=== PATIENT | male | born 1940 | race Caucasian/White ===

== ENCOUNTER 2019-03-09 08:44 | Observation (INO) ==
--- NOTE | 2019-02-24 10:28 | EKG Report ---
Test Performed on : 02/24/2019 09:38:37 AM Test Reason : PAT Blood Pressure : / mmHG Vent. Rate : 082 BPM Atrial Rate : 082 BPM P-R Int : 168 ms QRS Dur : 144 ms QT Int : 422 ms P-R-T Axes : 070 -78 051 degrees QTc Int : 493 ms Normal sinus rhythm. Left axis deviation Right bundle branch block Abnormal ECG No previous ECGs available Confirmed by Navi REYES, Chago Sin ([id number]) on 02/24/2019 11:39:57 AM
[2019-02-24 10:57] LABS: URINE SOURCE CLEAN CATCH
[2019-02-24 11:15] LABS: BILIRUBIN URINE NEGATIVE (NEGATIVE); BLOOD URINE NEGATIVE (NEGATIVE); COLOR YELLOW; GLUCOSE URINE NEGATIVE (NEGATIVE); KETONE URINE NEGATIVE (NEGATIVE); LEUKOCYTES URINE NEGATIVE (NEGATIVE); NITRITE URINE NEGATIVE (NEGATIVE); PROTEIN URINE TRACE mg/dL (NEGATIVE); SP GRAVITY URINE 1.005; TURBIDITY URINE CLEAR (CLEAR); UROBILINOGEN URINE NORMAL (NORMAL)
[2019-02-24 11:16] LABS: BASO# 0.03 X1000 (0.0-0.2); BASO% 0.4 % (0.0-0.8); EOS# 0.13 X1000 (0.0-0.7); EOS% 1.8 % (0.0-10.0); HEMATOCRIT 46.1 % (42.0-52.0); HEMOGLOBIN 15.3 g/dL (14.0-18.0); LYMPH# 1.72 X1000 (1.2-3.4); LYMPH% 23.8 % (20.5-51.1); MCH 30.8 PG (27-31); MCHC 33.2 g/dL (33-37); MCV 92.9 FL (81-99); MONO# 0.61 X1000 (0.11-0.59); MONO% 8.4 % (1.7-9.3); MPV 10.5 FL (7.4-10.4); NEUT# 4.73 X1000 (1.4-6.5); NEUT% 65.6 % (42.2-75.2); PLT 219 X1000 (130-400); RBC 4.96 XMIL (4.7-6.1); RDW 14.4 % (11.5-14.5); UR EPITHELIAL CELLS <10 /HPF (<10); URINE BACTERIA NEGATIVE /HPF; URINE RBC <10 /HPF (<10); URINE WBC <10 /HPF (<10); WBC 7.22 X1000 (4.8-10.8)
[2019-02-24 11:18] LABS: INR 0.86; PROTIME 12.4 Seconds (11.0-16.0); PTT 28.1 Seconds (22.3-41.8)
[2019-02-24 11:25] LABS: AGAP 11; BUN 22 mg/dL (8-22); CALCIUM 9.4 mg/dL (8.8-10.2); CHLORIDE 101 mmol/L (98-107); COSMO 287; ESTIMATED GFR > 60; GLUCOSE 147 mg/dL (70-104); POTASSIUM 4.7 mmol/L (3.5-5.1); SODIUM 141 mmol/L (136-145); TCO2 29 mmol/L (25-35)
[2019-03-09] MEDS ORDERED: LYRICA ONE (09:21)
[2019-03-09] MEDS ORDERED: PEPCID ONE (09:21)
[2019-03-09] MEDS ORDERED: KEFZOL 1 GM/D5W 1 GM/50 ML IVPB ONE (09:21)
[2019-03-09] MEDS ORDERED: REGLAN ONE (09:21)
[2019-03-09] MEDS ORDERED: LR 1,000 ML ONE (09:21)
[2019-03-09] MEDS ORDERED: COLACE ONE (09:38)
[2019-03-09] MEDS: COLACE ONE ×2 (09:50→09:53)
[2019-03-09] MEDS ORDERED: ROBINUL ONE (10:02)
[2019-03-09] MEDS ORDERED: FENTANYL ONE (10:02)
[2019-03-09] MEDS ORDERED: XYLOCAINE-MPF 2% ONE (10:02)
[2019-03-09] MEDS ORDERED: ZOFRAN ONE (10:02)
[2019-03-09] MEDS ORDERED: DIPRIVAN 1% ONE ×2 (10:02→10:39)
[2019-03-09] MEDS ORDERED: DECADRON ONE (10:02)
[2019-03-09] MEDS ORDERED: DURAMORPH ONE (10:07)
[2019-03-09] MEDS ORDERED: MARCAINE 0.25% PF/EPI 1:200,000 ONE (10:07)
[2019-03-09] MEDS ORDERED: VANCOMYCIN ONE (10:07)
[2019-03-09] MEDS ORDERED: TORADOL ONE (10:07)
[2019-03-09] MEDS ORDERED: NEOSPORIN G.U. IRRIGANT ONE (10:08)
[2019-03-09] MEDS ORDERED: SODIUM CHLORIDE 0.9% ONE (10:08)
[2019-03-09] MEDS ORDERED: EXPAREL 1.3% ONE (10:08)
[2019-03-09] MEDS ORDERED: OFIRMEV 1000 MG/ISOTONIC SOLN 1,000 MG/100 ML BOTTLE ONE (10:54)
[2019-03-09] MEDS: CYKLOKAPRON 1,000 MG/NS 2,000 MG/200 ML IVPB ONE ×2 (11:07→12:48)
[2019-03-09] MEDS ORDERED: SODIUM CHLORIDE 0.9% 10 ML ONE (11:08)
[2019-03-09] MEDS ORDERED: NEO-SYNEPHRINE ONE (11:54)
[2019-03-09 13:39] LABS: URINE SOURCE CATH
[2019-03-09] MEDS ORDERED: NS 1,000 ML ONE (13:40)
[2019-03-09 13:43] LABS: BILIRUBIN URINE NEGATIVE (NEGATIVE); BLOOD URINE NEGATIVE (NEGATIVE); COLOR YELLOW; GLUCOSE URINE NEGATIVE (NEGATIVE); KETONE URINE NEGATIVE (NEGATIVE); LEUKOCYTES URINE NEGATIVE (NEGATIVE); NITRITE URINE NEGATIVE (NEGATIVE); PH URINE 7.5; PROTEIN URINE NEGATIVE (NEGATIVE); SP GRAVITY URINE 1.006; TURBIDITY URINE CLEAR (CLEAR); UROBILINOGEN URINE NORMAL (NORMAL)
[2019-03-09 13:45] LABS: UR EPITHELIAL CELLS <10 /HPF (<10); URINE BACTERIA NEGATIVE /HPF; URINE RBC <10 /HPF (<10); URINE WBC <10 /HPF (<10)
--- NOTE | 2019-03-09 14:07 | Diag Imaging Result Doc PS360 ---
EXAM: KNEE 1-2 VIEWS-RIGHT 03/09/2019 HISTORY: right TKA TECHNIQUE: Two views COMMENT: There is a total knee arthroplasty. There is no evidence of acute fracture. There is atherosclerotic calcification in the distal superficial femoral artery. IMPRESSION: Postsurgical changes. Electronically signed by Jelani Nguyen 03/09/2019 2:05 PM
[2019-03-09] MEDS ORDERED: OXY IR PO PRN ×2 (16:30)
[2019-03-09] MEDS ORDERED: MORPHINE IV PRN ×3 (16:30)
[2019-03-09] MEDS ORDERED: ZOFRAN PO PRN (16:30)
[2019-03-09] MEDS: NS 1,000 ML IV SCH (17:28)
--- NOTE | 2019-03-09 19:47 | OPERATIVE NOTE ---
PROCEDURE DATE: 03/09/2019 PREOPERATIVE DIAGNOSIS: Degenerative osteoarthritis of right knee. POSTOPERATIVE DIAGNOSIS: Degenerative osteoarthritis of right knee. PROCEDURE: Right total knee arthroplasty, DePuy Attune size 7 posterior stabilized femur, size 6 tibial tray, a 5 mm rotating platform tibial insert, and a 38 mm medialized anatomic patella. SURGEON: Dante Sauer MD. ELECTRIC ORGAN ASSEMBLER: KAPIL Baker SECOND BELLY ROLLER: Giorgi Thompson RN. ANESTHESIA: Spinal. IV FLUIDS: 1500 mL lactated Ringer's. ESTIMATED BLOOD LOSS: 25 mL. TOURNIQUET TIME: 110 minutes at 350 mmHg. COMPLICATIONS: None. INDICATION: The patient is an 78-year-old male with a chronic history of worsening pain and discomfort in his right knee. He has had continued pain and discomfort despite appropriate nonoperative treatment. X-rays revealed degenerative osteoarthritis. Recommendation to proceed with right total knee arthroplasty was offered. Risks and benefits of surgery were explained, including the risks of anesthesia, , bleeding, infection, failure to relieve pain, postoperative stiffness, nerve injury, blood clots, and other imponderables. All questions were answered, and the patient wished to proceed with surgery. DETAILS OF OPERATION: Patient was taken to the operating room and placed supine on the operating table. Once adequate anesthesia was obtained, the patient's right lower extremity was subsequently prepped and draped in usual sterile fashion. Esmarch was used to exsanguinate the right lower extremity, and the tourniquet was inflated to 350 mm Hg. A standard anterior incision was made with skin knife. Medial and lateral skin envelopes were developed. Standard medial parapatellar arthrotomy was then performed. Patella fat pad was excised. Approximately 1 cm anterior to the PCL insertion, a starting reamer was passed. Intramedullary guide with a distal cutting block was pinned in position. Distal femoral cut was then performed. A sizing block was placed and measured to size 7. Corresponding pins were placed. Anterior, posterior and chamfer cuts were then made. Attention was then turned to the proximal tibia where further resection of the ACL and PCL was performed. Using the extramedullary guide, the proximal tibia cutting block was pinned into position. Had good alignment confirmed with the alignment antonio. The proximal tibia was then resected. Medial and lateral menisci were excised, and a curved osteotome was used to remove the posterior osteophytes off the distal femur. A spacer block was placed and had some tightness in full extension. Therefore a subsequent cut was made more distally as well as the chamfer cuts on the distal femur. Attention was then turned to the proximal tibia where a size 6 tibial tray appeared to be correct size. This was pinned in position. This was followed by a central reamer and a fin punch. The box cutting guide was then placed in the distal femoral, and box cut was performed. Trial femoral component was then placed as well as a trial tibial insert. Patella had been resected earlier, and a protective disk was placed. The protective this was removed. A size 38 appeared to be correct size. Holes were drilled. The trial patella component was then placed with good patellofemoral tracking. Trial components were removed. Copious irrigation was performed with antibiotic pulsatile lavage. Vancomycin was mixed with cement on the back table. Sequential cementing was then performed first with the tibial tray and excess cement was removed with a [place] followed by the femoral component and excess cement was removed with a [place] followed by trial tibial insert in full extension, and axial loading was maintained while cement cured. Patella component was cemented in standard fashion. Patella clamp was placed. While cement was curing, Exparel was placed in deep posterior capsule as well as subcutaneous tissue. After cement had cured, peripheral cement was removed with a small osteotome. The 5 mm rotating platform tibial insert appeared to be correct size. The trial insert was removed. Exparel was placed deep to posterior capsule. Wound was copiously irrigated once again with antibiotic pulsatile lavage. The 5 mm rotating platform tibial insert was then placed. The knee was then carried through range of motion with good range of motion and good soft tissue balance and good patellofemoral tracking. A 1/8 Hemovac drain was placed and was not sewn in. Copious irrigation performed once again with antibiotic pulsatile lavage. A #1 Vicryl was then used per the arthrotomy followed by 2-0 Vicryl in subcutaneous tissue and skin leah. Adaptic, sterile 4 x 4's, Webril, cryo unit, and Donaldo wrap were applied to the right lower extremity. The patient tolerated the procedure well and was transferred to the recovery room in stable condition. cc: Dante Sauer MD
[2019-03-09] MEDS: KEFZOL 1 GM/D5W 1 GM/50 ML IVPB IV SCH (20:13)
[2019-03-09] MEDS ORDERED: MIRALAX PO SCH (23:30)
[2019-03-09] MEDS ORDERED: NITROGLYCERIN SL PRN (23:42)
[2019-03-10] MEDS: KEFZOL 1 GM/D5W 1 GM/50 ML IVPB IV SCH (03:02)
[2019-03-10] MEDS: NS 1,000 ML IV SCH (05:41)
[2019-03-10 05:53] LABS: HEMATOCRIT 38.9 % (42.0-52.0); HEMOGLOBIN 12.9 g/dL (14.0-18.0)
[2019-03-10] MEDS ORDERED: XARELTO PO SCH (06:00)
[2019-03-10 06:15] LABS: CALCIUM 8.8 mg/dL (8.8-10.2); CREATININE 1.2 mg/dL (0.7-1.2); POTASSIUM 4.4 mmol/L (3.5-5.1)
[2019-03-10] MEDS ORDERED: GLUCOPHAGE PO SCH (09:00)
[2019-03-10] MEDS ORDERED: CENTRUM SILVER PO SCH (09:00)
[2019-03-10] MEDS ORDERED: BENICAR PO SCH (09:00)
[2019-03-10] MEDS ORDERED: PERIDEX MT SCH (09:00)
--- NOTE | 2019-03-10 09:21 | ORTHOPAEDICS PROGRESS NOTE ---
DATE: 03/10/2019 SUBJECTIVE: The patient is a pleasant, 78-year-old male who is 1 day status post right total knee arthroplasty. He is currently resting comfortably. PHYSICAL EXAMINATION: The patient's dressing is intact. His calf is soft. He has active dorsiflexion and plantar flexion. LABORATORY DATA: Hemoglobin is 12.9, hematocrit is 38.9. IMPRESSION: Postoperative day #1 status post right total knee arthroplasty. PLAN: At this point, we will change his dressing and discontinue his drain. We will begin mobilization with physical therapy. We will plan on discharging home once he is mobilizing well. We will arrange for home physical therapy. cc: Dante Sauer MD
[2019-03-10 12:50] VITALS: BP 146/73
== END 2019-03-10 14:38 | disposition home health service (06) ==
LOC: PAT 08:44 → 4N 08:44 → OPS 08:44
PROVIDERS: ADMIT Orthopaedic Surgery Adult Reconstructive Orthopaedic Surgery; ATTEND Orthopaedic Surgery Adult Reconstructive Orthopaedic Surgery
CPT/HCPCS: 73560; 80048; 81001; 82948; 85014; 85018; 85025; 85610; 85730; 86850; 86900; 86901; 88305; 88311; 93005; 93010; 94761; 94799; 97116; 97162; A9270; C9290; J0131; J0690; J1100; J1885; J2274; J2275; J2370; J2405; J3010; J3370; J7030; J7120; Q9974; S0020; XXXXX